=== PATIENT | female | born 1990 | race Caucasian/White ===

== ENCOUNTER 2017-12-04 15:17 | Emergency (ER) | payer OTHER ==
[2017-12-04 15:26] VITALS: BMI 32.9
[2017-12-04] MEDS ORDERED: Sodium Chloride 0.9% 1,000 ML IV STA (15:39)
--- NOTE | 2017-12-04 15:40 | ED PDOC ---
HPI: Abdomen Time Seen by Provider: 12/04/17 15:39 Chief Complaint (Nursing): Abdominal Pain Chief Complaint (Provider): abdominal pain History Per: Patient (27 y/o female here with vomiting/diarrhea and crampy lower abdominal pain since yesterday. Notes she ate tacos yesterday. Notes her daughter has had similar diarrhea 3 days prior. Notes fever yesterday 103.) Past Medical History Reviewed: Historical Data, Nursing Documentation, Vital Signs Vital Signs: Last Vital Signs Temp 98.4 F 12/04/17 18:19 Pulse 86 12/04/17 18:19 Resp 16 12/04/17 18:19 BP 110/70 12/04/17 18:19 Pulse Ox 98 12/04/17 18:19 - Family History Family History: States: Unknown Family Hx - Immunization History Hx Tetanus Toxoid Vaccination: No Hx Influenza Vaccination: Yes Hx Pneumococcal Vaccination: No - Home Medications Home Medications: Ambulatory Orders Medication Instructions Recorded Famotidine [Pepcid] 20 mg PO BID #20 tab 03/25/14 Clindamycin [Cleocin] 300 mg PO TID #30 cap 08/19/15 Ibuprofen [Motrin] 600 mg PO Q6H PRN #15 tab 08/19/15 Dicyclomine [Bentyl] 1 tab PO Q6 PRN #10 tab 12/04/17 Ondansetron [Zofran Odt] 4 mg PO Q8 PRN #10 odt 12/04/17 Ranitidine HCl [Zantac] 150 mg PO BID #10 tablet 12/04/17 - Allergies Allergies/Adverse Reactions: Allergies Allergy/AdvReac Type Severity Reaction Status Date / Time No Known Allergies Allergy Verified 03/25/14 16:59 Review of Systems ROS Statement: Except As Marked, All Systems Reviewed And Found Negative Physical Exam - Reviewed Nursing Documentation Reviewed: Yes Vital Signs Reviewed: Yes - Physical Exam Appears: Positive for: Well, Non-toxic, No Acute Distress Head Exam: Positive for: ATRAUMATIC, NORMAL INSPECTION, NORMOCEPHALIC Skin: Positive for: Normal Color, Warm, DRY Eye Exam: Positive for: EOMI, Normal appearance, PERRL ENT: Positive for: Normal ENT Inspection Neck: Positive for: Normal, Painless ROM Cardiovascular/Chest: Positive for: Regular Rate, Rhythm Respiratory: Positive for: CNT, Normal Breath Sounds Gastrointestinal/Abdominal: Positive for: Normal Exam, Bowel Sounds, Soft Back: Positive for: Normal Inspection Extremity: Positive for: Normal ROM Neurologic/Psych: Positive for: Alert, Oriented - Laboratory Results Result Diagrams: 12/04/17 16:33 12/04/17 16:33 - ECG O2 Sat by Pulse Oximetry: 100 - Progress ED Course And Treament: PEPCID 20 MG IV X 1 DOSE ZOFRAN 4 MG ODT NS 1 LITER WIDE OPEN PATIENT FEELS IMPROVED. PERSISTENT CRAMPY ABD PAIN/EPIGASTRIC PAIN MAALOX 30 ML PO X 1 DOSE; VISCOUS LIDOCAINE 5ML PO; BENTYL 20 MG X 1 DOSE Disposition - Clinical Impression Clinical Impression: Gastroenteritis - Patient ED Disposition Is Patient to be Admitted: No - Disposition Disposition: Routine/Home Disposition Time: 18:38 Condition: FAIR Prescriptions: Dicyclomine [Bentyl] 1 tab PO Q6 PRN #10 tab PRN Reason: Pain, Moderate (4-7) Ondansetron [Zofran Odt] 4 mg PO Q8 PRN #10 odt PRN Reason: Nausea/Vomiting Ranitidine HCl [Zantac] 150 mg PO BID #10 tablet Instructions: Gastroenteritis (ED), Low Fiber Diet Forms: [email or web address] [facility] (Italian), [facility] ED School/Work Excuse Print Language: GIBRALTAR[place]
[2017-12-04 16:41] LABS: BASO % 0.4 % (0.0-2.0); EOS # 0.1 K/uL (0.0-0.7); EOS % 0.9 % (0.0-4.0); HEMOGLOBIN 13.8 g/dL (12.0-16.0); LYMPH # 1.1 K/uL (1.0-4.3); MEAN CELL VOLUME 85.8 fl (81.0-99.0); MEAN CORPUSCULAR HEMOGLOBIN 28.8 pg (27.0-31.0); MEAN CORPUSCULAR HGB CONC 33.6 g/dL (33.0-37.0); MEAN PLATELET VOLUME 10.9 fl (7.2-11.7); MONO # 0.6 K/uL (0.0-0.8); MONO % 7.8 % (0.0-10.0); NEUT # 5.3 K/uL (1.8-7.0); NEUT % 74.9 % (50.0-75.0); NRBC % 0.1 % (0.0-0.0); RBC 4.79 Mil/uL (3.80-5.20); RED CELL DISTRIBUTION WIDTH 14.1 % (11.5-14.5); WHITE BLOOD COUNT 7.1 K/uL (4.8-10.8)
[2017-12-04 16:47] LABS: CALCIUM 9.3 mg/dL (8.4-10.2); GFR AFRICAN-AMERICAN > 60; GFR NON-AFRICAN AMERICAN > 60; LIPASE 47 U/L (23-300)
[2017-12-04 16:51] LABS: SQUAMOUS EPITHIAL 6 /hpf (0-5); URINE AMORPHOUS SEDIMENT RARE /ul (<OCC); URINE BACTERIA OCC (<OCC); URINE BILIRUBIN NEGATIVE (NEGATIVE); URINE BLOOD MODERATE (NEGATIVE); URINE CLARITY CLOUDY (Clear); URINE COLOR YELLOW (YELLOW); URINE GLUCOSE (UA) NEG (Normal); URINE LEUKOCYTE ESTERASE TRACE Leu/uL (Negative); URINE PROTEIN 100 mg/dL (NEGATIVE); URINE UROBILINOGEN 0.2-1.0 mg/dL (0.2-1.0)
[2017-12-04 17:19] LABS: ALBUMIN 4.7 g/dL (3.5-5.0); ALT/SGPT 37 U/L (9-52); AST/SGOT 53 U/L (14-36); BLOOD UREA NITROGEN 7 mg/dl (7-17)
[2017-12-04] MEDS ORDERED: Alum-Mag Hydrox-Simethicone Susp (30 mL) PO STA (17:40)
[2017-12-04] MEDS ORDERED: Alum-Mag Hydrox-Simethicone Susp (30 mL) ONE (18:15)
[2017-12-04 18:21] VITALS: BP 110/70; PULSE 86; RESP 16; TEMP 98.4
[2017-12-04 18:41] VITALS: O2SAT 100
== END 2017-12-04 19:18 | disposition home or self-care (01) ==
LOC: H.ER 15:17
DX: K52.9 Noninfective gastroenteritis and colitis, unspecified (principal)
CPT/HCPCS: 80053; 81003; 81025; 83690; 83735; 85025; 87086; 96361; 96374; 99284; J7040